=== PATIENT | male | born 1990 | race Caucasian/White ===

== ENCOUNTER 2023-03-11 15:29 | Emergency (ER) | payer MEDICAID ==
[~2023-03-11] VITALS: Ht 167.6 cm; Wt 78.0 kg
[2023-03-11] MEDS ORDERED: ACETAMINOPHEN 325MG TABLET PO STA (16:48)
[2023-03-11 17:06] LABS: HEMATOCRIT. 37.9 % (42.0-52.0); MEAN CORPUSCULAR HEMOGLOBIN 29.5 pg (28.0-32.0); MEAN CORPUSCULAR VOLUME 85.9 fL (80.0-94.0); MEAN PLATELET VOLUME 10.7 fl (7.4-10.4); PLATELET 171 x1000/uL (130-400); RED BLOOD CELL COUNT 4.41 mill/uL (4.7-6.1); RED CELL DISTRIBUTION WIDTH 13.7 % (11.6-14.6)
[2023-03-11 17:10] LABS: CHLORIDE 103 mEq/L (98-107)
[2023-03-11 17:55] LABS: CLARITY URINE CLEAR (CLEAR); COLOR URINE YELLOW (YELLOW); KETONES URINE NEGATIVE (NEGATIVE); LEUKOCYTE ESTERASE URINE NEGATIVE (NEGATIVE); NITRITE URINE NEGATIVE (NEGATIVE); OCCULT BLOOD URINE NEGATIVE (NEGATIVE); PH URINE 7.5 (4.5-8.0); PROTEIN URINE TRACE (NEGATIVE); SPECIFIC GRAVITY URINE 1.022 (1.005-1.030); UROBILINOGEN URINE 0.2 E.U./dL (0.2-1.0)
[2023-03-11 18:30] LABS: PLATELET ESTIMATE NORMAL
[2023-03-11 19:15] VITALS: BP 150/102
[2023-03-11] MEDS ORDERED: KETOROLAC 30MG/ML VIAL IV ONE (19:15)
[2023-03-11] MEDS ORDERED: SODIUM CHLORIDE 0.9% 1,000 ML IV ONE (19:15)
[2023-03-11 19:36] LABS: CREATINE KINASE 271 IU/L (39-308)
[2023-03-11] MEDS ORDERED: NAPR500T7 MT (20:46)
== END 2023-03-11 21:10 | disposition home or self-care (01) ==
LOC: ER 15:29
DX: U07.1 COVID-19 (principal); M79.10 Myalgia, unspecified site; R53.83 Other fatigue; F12.10 Cannabis abuse, uncomplicated; Z90.49 Acquired absence of other specified parts of digestive tract; Z20.822 Contact with and (suspected) exposure to COVID-19
CPT/HCPCS: 36415; 71045; 80053; 81003; 82550; 84484; 85025; 87426; 87804; 96361; 96374; 99284; C9803; J1885; J7030; Z7610